=== PATIENT | female | born 2000 | race Caucasian/White ===

== ENCOUNTER 2022-05-03 21:14 | Emergency (ER) | payer SELFPAY ==
[~2022-05-03] VITALS: Ht 167.6 cm; Wt 66.7 kg
[2022-05-03 22:12] LABS: HEMATOCRIT 38.3 % (31.2-41.9); MEAN CORPUSCULAR HEMOGLOBIN 28.4 uug (24.7-32.8); MEAN CORPUSCULAR VOLUME 85.4 fL (75.5-95.3); PLATELET COUNT (AUTO) 173 K/uL (179-408)
[2022-05-03 23:00] LABS: ALANINE AMINOTRANSFERASE 18 U/L (14-59); ALKALINE PHOSPHATASE 50 U/L (50-136); ASPARTATE AMINOTRANSFERASE 15 U/L (15-37); BILIRUBIN,DIRECT 0.1 mg/dL (0.0-0.2); BILIRUBIN,TOTAL 0.3 mg/dL (0.2-1.0); CARBON DIOXIDE 33 mmol/L (21-32); CHLORIDE 106 mmol/L (98-107); CREATININE 0.7 mg/dL (0.6-1.3); GLUCOSE 103 mg/dL (74-106); POTASSIUM 3.6 mmol/L (3.5-5.1); TOTAL PROTEIN, SERUM 7.3 g/dL (6.4-8.2); UREA NITROGEN, BLOOD 13 mg/dL (7-18)
--- NOTE | 2022-05-04 00:01 | NUR ---
Patient discharged to home in stable condition. Written and verbal after care instructions given. Patient verbalizes understanding of instructions. Stressed follow up or return to ER for worsening s/s.
[2022-05-04 00:04] VITALS: BP 121/88
== END 2022-05-04 00:04 | disposition home or self-care (01) ==
LOC: ER 21:20
DX: R10.2 Pelvic and perineal pain (principal)
CPT/HCPCS: 36415; 76856; 85025; A4663